=== PATIENT | female | born 1950 | race Caucasian/White ===

== ENCOUNTER 2021-10-25 09:57 | Emergency (ER) | payer MEDICARE, BC ==
[~2021-10-25] VITALS: Ht 162.6 cm; Wt 97.7 kg
--- NOTE | 2021-10-25 11:25 | NUR ---
Noted hematoma with blueish discploration, no obvious sign of deformity noted at this time.
[2021-10-25] MEDS ORDERED: morphine IR (immed. release) 30mg tablet PO ONE (14:00)
[2021-10-25] MEDS ORDERED: MORP15TA PO (14:02)
== END 2021-10-25 15:20 | disposition home or self-care (01) ==
LOC: ER 09:58
DX: S42.201A Unspecified fracture of upper end of right humerus, initial encounter for closed fracture (principal); K21.9 Gastro-esophageal reflux disease without esophagitis; F32.A Depression, unspecified; Z90.710 Acquired absence of both cervix and uterus; Z88.8 Allergy status to other drugs, medicaments and biological substances; Z79.899 Other long term (current) drug therapy; W19.XXXA Unspecified fall, initial encounter; Y93.89 Activity, other specified; Y92.89 Other specified places as the place of occurrence of the external cause; Y99.8 Other external cause status
CPT/HCPCS: 73030; 73060; 73070; 99284; A4565